=== PATIENT | male | born 1945 | race Caucasian/White ===

== ENCOUNTER 2017-01-14 18:56 | Inpatient (IN) | payer MEDICARE ==
[~2017-01-14] VITALS: Ht 182.9 cm; Wt 67.1 kg
[2017-01-14] MEDS ORDERED: LOPRESSOR (19:04)
[2017-01-14] MEDS ORDERED: ATOR10TA PO (19:04)
[2017-01-14] MEDS ORDERED: METHYLPREDNISOLONE SOD SUCC 125 MG/2 ML VIAL IV STA (19:10)
[2017-01-14] MEDS ORDERED: IPRATROPIUM/ALBUTEROL 0.5-3(2.5)MG/3ML NEB HHN ONE (19:15)
[2017-01-14] MEDS ORDERED: PIPERACILLIN/TAZ 3.375G PREMIX 50 ML IV ONE (19:15)
[2017-01-14 19:50] LABS: HEMATOCRIT. 37.3 % (42.0-52.0); HEMOGLOBIN. 11.1 g/dL (14.0-18.0); MEAN CORPUSCULAR HEMOGLOBIN 27.8 pg (28.0-32.0); MEAN CORPUSCULAR HGB CONC 29.7 g/dL (31.0-37.0); MEAN CORPUSCULAR VOLUME 93.5 fL (80.0-94.0); MEAN PLATELET VOLUME 9.9 fl (7.4-10.4); PLATELET 411 x1000/uL (130-400); RED BLOOD CELL COUNT 3.99 mill/uL (4.7-6.1); RED CELL DISTRIBUTION WIDTH 18.1 % (11.6-14.6)
[2017-01-14 19:52] LABS: DIFFERENTIAL COMMENT 1
[2017-01-14 20:01] LABS: ALBUMIN 1.9 g/dL (3.4-5.0); AMMONIA 65 uMol/L (<32); ANION GAP 20; CALCIUM 9.1 mg/dL (8.5-10.1); CARBON DIOXIDE 21 mEq/L (21-32); CHLORIDE 120 mEq/L (98-107); INDEX HEMOLYSI 1 (1-3); INDEX ICTERIC 1 (1-4); INDEX LIPEMIC 1 (1-3)
[2017-01-14 20:03] LABS: UREA NITROGEN BLOOD 91 mg/dL (7-21)
[2017-01-14 20:04] LABS: ALANINE AMINOTRANSFERASE 86 IU/L (13-61)
[2017-01-14 20:05] LABS: PLATELET ESTIMATE SLIGHTLY INCREASED
[2017-01-14 20:06] LABS: LACTIC ACID 10.5 mmol/L (0.4-2.0)
[2017-01-14 20:07] LABS: CREATINE KINASE 738 IU/L (39-308); eGFR 20 mL/min (>60)
[2017-01-14 20:09] LABS: NT PRO B-TYPE NATRIURETIC PEP 6989 pg/mL (5-125); TROPONIN I 0.09 ng/mL (0.00-0.04)
[2017-01-14 20:26] LABS: INR 1.3; PARTIAL THROMBOPLASTIN TIME 24.5 sec (24.0-34.0)
[2017-01-14 20:30] LABS: BG BASE EXCESS -9.6 mmol/L (-2.0-2.0); BG CARBOXYHEMOGLOBIN 0.3 % (0.5-1.5); BG DEOXYHEMOGLOBIN 3.2 % (0.0-5.0); BG FRACTION INSPIRED OXYGEN 40; BG METHEMOGLOBIN 0.3 % (0.0-1.5); BG OXYGEN SATURATION 96.8 % (92.0-98.5); BG OXYHEMOGLOBIN 96.2 % (94.0-97.0); BG PCO2 14.6 mmHg (35.0-45.0); BG PH 7.494 (7.350-7.450); BG PO2 88.9 mmHg (75.0-100.0); BG SAMPLE SITE LEFT FEMORAL; BG TOTAL HEMOGLOBIN 11.7 g/dL (12.0-18.0); BG VENT MODE MASK - SIMPLE
[2017-01-14] MEDS ORDERED: DEXT 10% WATER 1,000 ML IV ONE (20:33)
[2017-01-14] MEDS ORDERED: ACETAMINOPHEN 650MG SUPP PR ONE (20:45)
[2017-01-14] MEDS ORDERED: DEXTROSE 50% WATER 50ML SYRINGE IV ONE (20:45)
[2017-01-14] MEDS ORDERED: SODIUM CHLORIDE 0.9% 1000ML BAG (SEPSIS BOLUS) IV ONE (21:00)
[2017-01-14] MEDS ORDERED: DEXTROSE 10% WATER 1000ML IV ONE (21:00)
[2017-01-14 21:41] LABS: CLARITY URINE CLOUDY (CLEAR); COLOR URINE DARK YELLOW (YELLOW); GLUCOSE URINE NEGATIVE (NEGATIVE); KETONES URINE NEGATIVE (NEGATIVE); LEUKOCYTE ESTERASE URINE NEGATIVE (NEGATIVE); NITRITE URINE NEGATIVE (NEGATIVE); OCCULT BLOOD URINE NEGATIVE (NEGATIVE); PROTEIN URINE TRACE (NEGATIVE); SPECIFIC GRAVITY URINE 1.023 (1.005-1.030)
[2017-01-14 22:16] LABS: BACTERIA URINE 2+; SQUAMOUS EPITHELIAL CELL URINE FEW /lpf (RARE/1+)
[2017-01-14 22:17] LABS: RBC URINE NONE SEEN /hpf (0-2); WBC URINE 0-2 /hpf (0-2)
[2017-01-14] MEDS ORDERED: SODIUM CHLORIDE 0.9% 1,000 ML IV ONE (22:28)
[2017-01-15] VITALS (14 sets, daily range): BP systolic 81–126; BP diastolic 39–89
[2017-01-15] MEDS ORDERED: ACETAMINOPHEN 650MG SUPP PR PRN (00:45)
[2017-01-15] MEDS: DEXTROSE 5% WATER 1,000 ML IV SCH ×2 (01:20→14:45)
[2017-01-15] MEDS: PIPERACILLIN/TAZ 2.25G PREMIX 50 ML IV SCH ×4 (03:27→20:25)
[2017-01-15] MEDS ORDERED: PIPERACILLIN/TAZ 3.375G PREMIX 50 ML IV SCH (06:00)
[2017-01-15 06:35] LABS: HEMATOCRIT 28.4 % (42.0-52.0); HEMOGLOBIN 8.8 g/dL (14.0-18.0); MEAN CORPUSCULAR HEMOGLOBIN 27.3 pg (28.0-32.0); MEAN CORPUSCULAR HGB CONC 30.8 g/dL (31.0-37.0); MEAN CORPUSCULAR VOLUME 88.8 fL (80.0-94.0); PLATELET 217 x1000/uL (130-400); RED CELL DISTRIBUTION WIDTH 17.8 % (11.6-14.6); WHITE BLOOD COUNT 12.7 x1000/uL (4.5-11.0)
[2017-01-15 07:19] LABS: CALCIUM 7.3 mg/dL (8.5-10.1)
[2017-01-15] MEDS ORDERED: VANCOMYCIN 1,250 MG in DEXT 5% WATER 250 ML IV SCH (13:00)
[2017-01-15 13:47] LABS: INDEX HEMOLYSI 1 (1-3)
[2017-01-15 13:52] LABS: CREATINE KINASE 3545 IU/L (39-308)
[2017-01-16] VITALS (13 sets, daily range): BP systolic 82–108; BP diastolic 35–72
[2017-01-16] MEDS: PIPERACILLIN/TAZ 2.25G PREMIX 50 ML IV SCH ×3 (02:15→15:26)
[2017-01-16] MEDS: DEXTROSE 5% WATER 1,000 ML IV SCH ×4 (02:16→21:13)
[2017-01-16 06:26] LABS: HEMATOCRIT. 27.2 % (42.0-52.0); HEMOGLOBIN. 8.5 g/dL (14.0-18.0); MEAN CORPUSCULAR HEMOGLOBIN 26.9 pg (28.0-32.0); MEAN CORPUSCULAR HGB CONC 31.3 g/dL (31.0-37.0); MEAN CORPUSCULAR VOLUME 85.9 fL (80.0-94.0); MEAN PLATELET VOLUME 10.1 fl (7.4-10.4); PLATELET 188 x1000/uL (130-400); RED BLOOD CELL COUNT 3.16 mill/uL (4.7-6.1); RED CELL DISTRIBUTION WIDTH 17.4 % (11.6-14.6); WHITE BLOOD COUNT 19.1 x1000/uL (4.5-11.0)
[2017-01-16 06:38] LABS: DIFFERENTIAL COMMENT 1
[2017-01-16 07:33] LABS: ALANINE AMINOTRANSFERASE 233 IU/L (13-61); ALBUMIN 1.3 g/dL (3.4-5.0); ANION GAP 16; CALCIUM 7.7 mg/dL (8.5-10.1); CARBON DIOXIDE 19 mEq/L (21-32); CHLORIDE 121 mEq/L (98-107); INDEX HEMOLYSI 1 (1-3); INDEX ICTERIC 1 (1-4); INDEX LIPEMIC 1 (1-3); MAGNESIUM 3.2 mg/dL (1.8-2.4); eGFR 23 mL/min (>60)
[2017-01-16 07:49] LABS: UREA NITROGEN BLOOD 102 mg/dL (7-21)
[2017-01-16 07:53] LABS: ANISOCYTOSIS 1+; PLATELET ESTIMATE NORMAL
[2017-01-16] MEDS ORDERED: VANCOMYCIN 1 G PREMIX 200 ML IV NR (12:00)
[2017-01-16] MEDS: PANTOPRAZOLE SODIUM 40 MG/VIAL IV SCH (13:06)
[2017-01-16 18:02] LABS: ANTI-NUCLEAR ANTIBODIES DIRECT Positive (Negative)
[2017-01-16] MEDS: METRONIDAZOLE 500 MG PREMIX 100 ML IV SCH (20:53)
[2017-01-16] MEDS: CEFTAZIDIME PENTAHYDRATE 1 G in DEXTROSE 5% WATER 50 ML IV SCH (21:57)
[2017-01-17] VITALS (13 sets, daily range): BP systolic 86–104; BP diastolic 45–68
[2017-01-17] MEDS: DEXTROSE 5% WATER 1,000 ML IV SCH ×3 (05:02→20:15)
[2017-01-17 05:39] LABS: COMPLEMENT C3 119 mg/dL (82-167); COMPLEMENT C4 17 mg/dL (14-44)
[2017-01-17] MEDS ORDERED: VANCOMYCIN 1 G PREMIX 200 ML IV NR (06:00)
[2017-01-17 06:38] LABS: HEMATOCRIT. 24.3 % (42.0-52.0); HEMOGLOBIN. 7.7 g/dL (14.0-18.0); MEAN CORPUSCULAR HEMOGLOBIN 27.1 pg (28.0-32.0); MEAN CORPUSCULAR HGB CONC 31.9 g/dL (31.0-37.0); MEAN CORPUSCULAR VOLUME 85.1 fL (80.0-94.0); MEAN PLATELET VOLUME 10.5 fl (7.4-10.4); PLATELET 155 x1000/uL (130-400); RED BLOOD CELL COUNT 2.85 mill/uL (4.7-6.1); RED CELL DISTRIBUTION WIDTH 16.7 % (11.6-14.6); WHITE BLOOD COUNT 17.7 x1000/uL (4.5-11.0)
[2017-01-17 07:02] LABS: DIFFERENTIAL COMMENT 1
[2017-01-17 07:09] LABS: HEPATITIS B SURFACE ANTIGEN NEGATIVE
[2017-01-17 07:37] LABS: HEPATITIS B CORE AB IGM NEGATIVE; HEPATITIS C VIR.AB 0.26 INDEXVAL (0.00-0.80)
[2017-01-17 07:39] LABS: HEPATITIS A AB IGM NEGATIVE (NEGATIVE)
[2017-01-17 07:58] LABS: ANION GAP 14; CALCIUM 7.8 mg/dL (8.5-10.1); CARBON DIOXIDE 19 mEq/L (21-32); CHLORIDE 118 mEq/L (98-107); INDEX HEMOLYSI 1 (1-3); INDEX ICTERIC 1 (1-4); INDEX LIPEMIC 1 (1-3); MAGNESIUM 3.2 mg/dL (1.8-2.4); URIC ACID 8.5 mg/dL (2.6-7.2)
[2017-01-17 08:10] LABS: ALANINE AMINOTRANSFERASE 244 IU/L (13-61); ALBUMIN 1.3 g/dL (3.4-5.0); CREATINE KINASE 668 IU/L (39-308); eGFR 31 mL/min (>60)
[2017-01-17 08:15] LABS: ANISOCYTOSIS 1+; PLATELET ESTIMATE NORMAL
[2017-01-17] MEDS: PANTOPRAZOLE SODIUM 40 MG/VIAL IV SCH ×2 (08:24→20:15)
[2017-01-17] MEDS: METRONIDAZOLE 500 MG PREMIX 100 ML IV SCH ×2 (08:24→22:01)
[2017-01-17 08:25] LABS: UREA NITROGEN BLOOD 93 mg/dL (7-21)
[2017-01-17] MEDS ORDERED: POTASSIUM CHLORIDE 20 MEQ/PACKET PO NR (09:33)
[2017-01-17] MEDS: CEFTAZIDIME PENTAHYDRATE 1 G in DEXTROSE 5% WATER 50 ML IV SCH ×2 (10:51→22:13)
[2017-01-17] MEDS ORDERED: KCL 20MEQ/100ML PREMIX 100 ML IV NR (12:00)
[2017-01-17] MEDS ORDERED: LACTULOSE 300 ML in WATER FOR INJECTION,STERILE 700 ML PR NR (18:00)
[2017-01-17 19:14] LABS: AMMONIA 20 uMol/L (<32)
[2017-01-17] MEDS ORDERED: VANCOMYCIN 1 G PREMIX 200 ML IV SCH (21:00)
[2017-01-18] VITALS (12 sets, daily range): BP systolic 74–103; BP diastolic 38–87
[2017-01-18] MEDS: DEXTROSE 5% WATER 1,000 ML IV SCH ×2 (06:27→13:25)
[2017-01-18 07:40] LABS: HEMATOCRIT. 22.2 % (42.0-52.0); HEMOGLOBIN. 7.1 g/dL (14.0-18.0); MEAN CORPUSCULAR HEMOGLOBIN 27.2 pg (28.0-32.0); MEAN PLATELET VOLUME 10.2 fl (7.4-10.4); PLATELET 128 x1000/uL (130-400); RED BLOOD CELL COUNT 2.61 mill/uL (4.7-6.1); RED CELL DISTRIBUTION WIDTH 16.6 % (11.6-14.6); WHITE BLOOD COUNT 12.3 x1000/uL (4.5-11.0)
[2017-01-18 08:09] LABS: DIFFERENTIAL COMMENT 1
[2017-01-18 08:26] LABS: CALCIUM 7.6 mg/dL (8.5-10.1); MAGNESIUM 3.1 mg/dL (1.8-2.4)
[2017-01-18 08:30] LABS: ALBUMIN 1.2 g/dL (3.4-5.0); BILIRUBIN DIRECT 0.3 mg/dL (0.0-0.2); PHOSPHORUS 2.5 mg/dL (2.5-4.9)
[2017-01-18 08:31] LABS: AMMONIA 28 uMol/L (<32)
[2017-01-18] MEDS ORDERED: FAMOTIDINE 20MG/2ML VIAL IV SCH (09:00)
[2017-01-18] MEDS: METRONIDAZOLE 500 MG PREMIX 100 ML IV SCH ×2 (09:02→20:38)
[2017-01-18] MEDS: PANTOPRAZOLE SODIUM 40 MG/VIAL IV SCH ×2 (09:02→20:44)
[2017-01-18] MEDS: CEFTAZIDIME PENTAHYDRATE 1 G in DEXTROSE 5% WATER 50 ML IV SCH ×2 (09:50→20:38)
[2017-01-18 12:34] LABS: PLATELET ESTIMATE SLIGHTLY DECREASED
[2017-01-18 12:35] LABS: ROULEAUX 1+
[2017-01-18] MEDS ORDERED: POTASSIUM CHLORIDE 20 MEQ/PACKET PO SCH (14:00)
[2017-01-18] MEDS ORDERED: KCL 20MEQ/100ML PREMIX 100 ML IV NR (15:00)
[2017-01-18] MEDS: DEXT 5% WATER + KCL 20MEQ/L 1,000 ML IV SCH (16:04)
[2017-01-18] MEDS: VANCOMYCIN 1250MG in DEXTROSE 5% WATER 250ML IV SCH (21:57)
[2017-01-19] VITALS (12 sets, daily range): BP systolic 93–121; BP diastolic 51–66
[2017-01-19 06:13] LABS: INR 1.2; PARTIAL THROMBOPLASTIN TIME 30.1 sec (24.0-34.0)
[2017-01-19 06:15] LABS: INDEX HEMOLYSI 1 (1-3)
[2017-01-19 06:18] LABS: AMMONIA < 10 uMol/L (<32)
[2017-01-19] MEDS: DEXT 5% WATER + KCL 20MEQ/L 1,000 ML IV SCH ×2 (06:19→17:28)
[2017-01-19 06:24] LABS: HEMATOCRIT. 25.1 % (42.0-52.0); HEMOGLOBIN. 7.9 g/dL (14.0-18.0); MEAN CORPUSCULAR HGB CONC 31.5 g/dL (31.0-37.0); MEAN CORPUSCULAR VOLUME 85.7 fL (80.0-94.0); MEAN PLATELET VOLUME 10.1 fl (7.4-10.4); PLATELET 151 x1000/uL (130-400); RED BLOOD CELL COUNT 2.93 mill/uL (4.7-6.1); RED CELL DISTRIBUTION WIDTH 16.5 % (11.6-14.6); WHITE BLOOD COUNT 11.8 x1000/uL (4.5-11.0)
[2017-01-19 06:34] LABS: DIFFERENTIAL COMMENT 1
[2017-01-19 07:18] LABS: ALANINE AMINOTRANSFERASE 231 IU/L (13-61); ALBUMIN 1.4 g/dL (3.4-5.0); ANION GAP 12; BILIRUBIN DIRECT 0.3 mg/dL (0.0-0.2); CALCIUM 7.8 mg/dL (8.5-10.1); CARBON DIOXIDE 21 mEq/L (21-32); CHLORIDE 114 mEq/L (98-107); INDEX HEMOLYSI 1 (1-3); INDEX ICTERIC 1 (1-4); INDEX LIPEMIC 1 (1-3); UREA NITROGEN BLOOD 47 mg/dL (7-21); eGFR > 60 mL/min (>60)
[2017-01-19] MEDS: METRONIDAZOLE 500 MG PREMIX 100 ML IV SCH ×2 (08:41→20:33)
[2017-01-19] MEDS: PANTOPRAZOLE SODIUM 40 MG/VIAL IV SCH (08:41)
[2017-01-19] MEDS: CEFTAZIDIME PENTAHYDRATE 1 G in DEXTROSE 5% WATER 50 ML IV SCH ×2 (09:44→21:32)
[2017-01-19 10:23] LABS: ANISOCYTOSIS 2+; PLATELET ESTIMATE NORMAL
[2017-01-19] MEDS ORDERED: SIMETHICONE 40 MG/0.6 ML 30ML ONE ×2 (10:59→11:00)
[2017-01-19] MEDS ORDERED: SODIUM CHLORIDE 0.9% 10ML VIAL ONE ×2 (10:59→11:00)
[2017-01-19] MEDS ORDERED: FENTANYL CITRATE/PF 50MCG/ML 2ML VIAL ONE (15:49)
[2017-01-19] MEDS ORDERED: MIDAZOLAM HCL 5 MG/5 ML VIAL ONE (15:49)
[2017-01-19 17:20] LABS: INDEX HEMOLYSI 1 (1-3); INDEX ICTERIC 1 (1-4); INDEX LIPEMIC 1 (1-3); IRON 33 ug/dL (50-175); TOTAL IRON BINDING CAPACITY 236 ug/dL (250-450)
[2017-01-19] MEDS: VANCOMYCIN 1250MG in DEXTROSE 5% WATER 250ML IV SCH (22:06)
[2017-01-20] VITALS (16 sets, daily range): BP systolic 88–120; BP diastolic 52–71
[2017-01-20 05:14] LABS: HEMATOCRIT. 24.7 % (42.0-52.0); HEMOGLOBIN. 7.9 g/dL (14.0-18.0); MEAN CORPUSCULAR HEMOGLOBIN 27.7 pg (28.0-32.0); MEAN CORPUSCULAR HGB CONC 31.8 g/dL (31.0-37.0); MEAN CORPUSCULAR VOLUME 87.2 fL (80.0-94.0); MEAN PLATELET VOLUME 10.2 fl (7.4-10.4); PLATELET 165 x1000/uL (130-400); RED BLOOD CELL COUNT 2.84 mill/uL (4.7-6.1); RED CELL DISTRIBUTION WIDTH 16.6 % (11.6-14.6); WHITE BLOOD COUNT 12.2 x1000/uL (4.5-11.0)
[2017-01-20 05:15] LABS: DIFFERENTIAL COMMENT 1
[2017-01-20 06:29] LABS: INDEX HEMOLYSI 1 (1-3)
[2017-01-20 06:31] LABS: ALANINE AMINOTRANSFERASE 149 IU/L (13-61); ALBUMIN 1.4 g/dL (3.4-5.0); ANION GAP 11; BILIRUBIN DIRECT 0.2 mg/dL (0.0-0.2); CALCIUM 7.3 mg/dL (8.5-10.1); CARBON DIOXIDE 21 mEq/L (21-32); CHLORIDE 116 mEq/L (98-107); INDEX HEMOLYSI 1 (1-3); INDEX ICTERIC 1 (1-4); INDEX LIPEMIC 1 (1-3); UREA NITROGEN BLOOD 35 mg/dL (7-21); eGFR > 60 mL/min (>60)
[2017-01-20 06:39] LABS: AMMONIA 30 uMol/L (<32)
[2017-01-20 07:16] LABS: PLATELET ESTIMATE NORMAL
[2017-01-20] MEDS: METRONIDAZOLE 500 MG PREMIX 100 ML IV SCH ×2 (09:29→19:51)
[2017-01-20] MEDS: CEFTAZIDIME PENTAHYDRATE 1 G in DEXTROSE 5% WATER 50 ML IV SCH ×2 (09:29→21:14)
[2017-01-20] MEDS: VANCOMYCIN 1250MG in DEXTROSE 5% WATER 250ML IV SCH (21:47)
[2017-01-21] VITALS (12 sets, daily range): BP systolic 91–130; BP diastolic 49–78
[2017-01-21 06:33] LABS: HEMATOCRIT. 34.5 % (42.0-52.0); HEMOGLOBIN. 11.1 g/dL (14.0-18.0); MEAN CORPUSCULAR HEMOGLOBIN 28.1 pg (28.0-32.0); MEAN CORPUSCULAR HGB CONC 32.3 g/dL (31.0-37.0); MEAN CORPUSCULAR VOLUME 87.1 fL (80.0-94.0); MEAN PLATELET VOLUME 10.1 fl (7.4-10.4); PLATELET 182 x1000/uL (130-400); RED BLOOD CELL COUNT 3.96 mill/uL (4.7-6.1); RED CELL DISTRIBUTION WIDTH 16.7 % (11.6-14.6); WHITE BLOOD COUNT 13.3 x1000/uL (4.5-11.0)
[2017-01-21 06:40] LABS: DIFFERENTIAL COMMENT 1
[2017-01-21 07:21] LABS: ALBUMIN 1.5 g/dL (3.4-5.0); ANION GAP 12; BILIRUBIN DIRECT 0.1 mg/dL (0.0-0.2); CALCIUM 7.5 mg/dL (8.5-10.1); CARBON DIOXIDE 21 mEq/L (21-32); CHLORIDE 115 mEq/L (98-107); INDEX HEMOLYSI 1 (1-3); INDEX ICTERIC 1 (1-4); INDEX LIPEMIC 1 (1-3); UREA NITROGEN BLOOD 28 mg/dL (7-21)
[2017-01-21 07:27] LABS: ALANINE AMINOTRANSFERASE 103 IU/L (13-61); eGFR > 60 mL/min (>60)
[2017-01-21 07:49] LABS: ATYPICAL LYMPHOCYTES 1; PLATELET ESTIMATE NORMAL
[2017-01-21] MEDS: CEFTAZIDIME PENTAHYDRATE 1 G in DEXTROSE 5% WATER 50 ML IV SCH ×2 (08:17→21:04)
[2017-01-21] MEDS: METRONIDAZOLE 500 MG PREMIX 100 ML IV SCH ×2 (08:17→19:40)
[2017-01-21] MEDS ORDERED: VANCOMYCIN 1 G PREMIX 200 ML IV SCH (14:00)
[2017-01-21] MEDS: ACETAMINOPHEN 325MG TABLET PO PRN (23:41)
[2017-01-22] VITALS (9 sets, daily range): BP systolic 88–118; BP diastolic 56–68
[2017-01-22] MEDS: VANCOMYCIN 1 G PREMIX 200 ML IV SCH (05:02)
[2017-01-22 06:48] LABS: HEMOGLOBIN. 11.4 g/dL (14.0-18.0); MEAN CORPUSCULAR HEMOGLOBIN 27.9 pg (28.0-32.0); MEAN CORPUSCULAR HGB CONC 32.5 g/dL (31.0-37.0); MEAN PLATELET VOLUME 9.8 fl (7.4-10.4); PLATELET 239 x1000/uL (130-400); RED BLOOD CELL COUNT 4.07 mill/uL (4.7-6.1); WHITE BLOOD COUNT 16.2 x1000/uL (4.5-11.0)
[2017-01-22 07:13] LABS: DIFFERENTIAL COMMENT 1
[2017-01-22 07:39] LABS: CHLORIDE 115 mEq/L (98-107); INDEX HEMOLYSI 1 (1-3); INDEX ICTERIC 1 (1-4); INDEX LIPEMIC 1 (1-3)
[2017-01-22 08:13] LABS: ANION GAP 12; CALCIUM 7.3 mg/dL (8.5-10.1); CARBON DIOXIDE 21 mEq/L (21-32); UREA NITROGEN BLOOD 26 mg/dL (7-21); eGFR > 60 mL/min (>60)
[2017-01-22] MEDS: CEFTAZIDIME PENTAHYDRATE 1 G in DEXTROSE 5% WATER 50 ML IV SCH ×2 (08:43→20:07)
[2017-01-22] MEDS: METRONIDAZOLE 500 MG PREMIX 100 ML IV SCH ×2 (08:44→20:07)
[2017-01-22 19:52] LABS: PLATELET ESTIMATE NORMAL
[2017-01-23] VITALS (10 sets, daily range): BP systolic 85–116; BP diastolic 54–77
[2017-01-23] MEDS: VANCOMYCIN 1 G PREMIX 200 ML IV SCH ×2 (00:26→17:34)
[2017-01-23] MEDS: ACETAMINOPHEN 325MG TABLET PO PRN (04:27)
[2017-01-23 06:50] LABS: HEMATOCRIT. 30.6 % (42.0-52.0); HEMOGLOBIN. 9.8 g/dL (14.0-18.0); MEAN CORPUSCULAR HEMOGLOBIN 27.5 pg (28.0-32.0); MEAN CORPUSCULAR HGB CONC 31.9 g/dL (31.0-37.0); MEAN CORPUSCULAR VOLUME 86.1 fL (80.0-94.0); MEAN PLATELET VOLUME 9.6 fl (7.4-10.4); PLATELET 209 x1000/uL (130-400); RED BLOOD CELL COUNT 3.55 mill/uL (4.7-6.1); RED CELL DISTRIBUTION WIDTH 17.6 % (11.6-14.6); WHITE BLOOD COUNT 15.9 x1000/uL (4.5-11.0)
[2017-01-23 07:26] LABS: CHLORIDE 115 mEq/L (98-107); INDEX HEMOLYSI 1 (1-3); INDEX ICTERIC 1 (1-4); INDEX LIPEMIC 1 (1-3)
[2017-01-23 07:31] LABS: ANION GAP 12; CALCIUM 7.5 mg/dL (8.5-10.1); CARBON DIOXIDE 22 mEq/L (21-32); UREA NITROGEN BLOOD 28 mg/dL (7-21); eGFR > 60 mL/min (>60)
[2017-01-23 07:56] LABS: DIFFERENTIAL COMMENT 1
[2017-01-23] MEDS: METRONIDAZOLE 500 MG PREMIX 100 ML IV SCH ×2 (08:12→21:30)
[2017-01-23] MEDS: CEFTAZIDIME PENTAHYDRATE 1 G in DEXTROSE 5% WATER 50 ML IV SCH ×2 (08:12→21:31)
[2017-01-23] MEDS: MORPHINE SULFATE 2 MG/ML CPJ (NOT FOR IM USE) IV PRN ×2 (11:10→17:40)
[2017-01-23] MEDS: DOCUSATE SODIUM 100MG CAPSULE PO SCH ×2 (11:48→17:34)
[2017-01-23 12:26] LABS: PLATELET ESTIMATE NORMAL
[2017-01-23 12:27] LABS: ANISOCYTOSIS 1+
[2017-01-23] MEDS ORDERED: LACTULOSE 20G/30ML UDC PO PRN (21:00)
[2017-01-24] VITALS: BP 112/67
[2017-01-24 04:00] VITALS: BP 98/51
[2017-01-24 06:30] LABS: ALBUMIN 1.1 g/dL (3.4-5.0); ANION GAP 13; CALCIUM 7.5 mg/dL (8.5-10.1); CARBON DIOXIDE 23 mEq/L (21-32); CHLORIDE 114 mEq/L (98-107); INDEX HEMOLYSI 1 (1-3); INDEX ICTERIC 1 (1-4); INDEX LIPEMIC 1 (1-3); UREA NITROGEN BLOOD 27 mg/dL (7-21)
[2017-01-24 06:35] LABS: ALANINE AMINOTRANSFERASE 40 IU/L (13-61); eGFR > 60 mL/min (>60)
[2017-01-24] MEDS: METRONIDAZOLE 500 MG PREMIX 100 ML IV SCH (07:56)
[2017-01-24 08:00] VITALS: BP 113/61
[2017-01-24] MEDS: DOCUSATE SODIUM 100MG CAPSULE PO SCH ×2 (08:32→16:53)
[2017-01-24] MEDS: CEFTAZIDIME PENTAHYDRATE 1 G in DEXTROSE 5% WATER 50 ML IV SCH (08:32)
[2017-01-24 12:00] VITALS: BP 102/59
[2017-01-24] MEDS: VANCOMYCIN 1 G PREMIX 200 ML IV SCH (12:29)
[2017-01-24 16:00] VITALS: BP 117/70
[2017-01-24 20:00] VITALS: BP 92/50
[2017-01-25] VITALS: BP 97/63
[2017-01-25 04:00] VITALS: BP 100/67
[2017-01-25] MEDS: VANCOMYCIN 1 G PREMIX 200 ML IV SCH (05:58)
[2017-01-25 06:24] LABS: HEMATOCRIT. 29.4 % (42.0-52.0); HEMOGLOBIN. 9.7 g/dL (14.0-18.0); MEAN CORPUSCULAR HEMOGLOBIN 28.3 pg (28.0-32.0); MEAN CORPUSCULAR HGB CONC 32.8 g/dL (31.0-37.0); MEAN CORPUSCULAR VOLUME 86.2 fL (80.0-94.0); MEAN PLATELET VOLUME 9.7 fl (7.4-10.4); PLATELET 227 x1000/uL (130-400); RED BLOOD CELL COUNT 3.42 mill/uL (4.7-6.1); RED CELL DISTRIBUTION WIDTH 17.1 % (11.6-14.6); WHITE BLOOD COUNT 15.3 x1000/uL (4.5-11.0)
[2017-01-25 06:39] LABS: DIFFERENTIAL COMMENT 1
[2017-01-25 06:45] LABS: ANION GAP 11; CALCIUM 7.6 mg/dL (8.5-10.1); CARBON DIOXIDE 25 mEq/L (21-32); CHLORIDE 113 mEq/L (98-107); INDEX HEMOLYSI 1 (1-3); INDEX ICTERIC 1 (1-4); INDEX LIPEMIC 1 (1-3); MAGNESIUM 1.9 mg/dL (1.8-2.4); PHOSPHORUS 2.6 mg/dL (2.5-4.9); UREA NITROGEN BLOOD 29 mg/dL (7-21); eGFR > 60 mL/min (>60)
[2017-01-25 08:00] VITALS: BP 105/64
[2017-01-25] MEDS: DOCUSATE SODIUM 100MG CAPSULE PO SCH (08:30)
[2017-01-25 12:00] VITALS: BP 104/64
[2017-01-25 13:19] LABS: ANISOCYTOSIS 1+; PLATELET ESTIMATE NORMAL
[2017-01-25 16:00] VITALS: BP 98/64
[2017-01-25] MEDS: DOCUSATE SODIUM SUGAR FREE 100MG/10ML UDC GT SCH (16:30)
[2017-01-25 20:00] VITALS: BP 105/57
[2017-01-26] VITALS: BP 107/61
[2017-01-26] MEDS: VANCOMYCIN 1 G PREMIX 200 ML IV SCH (00:48)
[2017-01-26 04:00] VITALS: BP 93/62
[2017-01-26 08:00] VITALS: BP 100/66
[2017-01-26] MEDS: DOCUSATE SODIUM SUGAR FREE 100MG/10ML UDC GT SCH (09:52)
[2017-01-26 12:00] VITALS: BP 90/51
[2017-01-26 15:14] VITALS: BP 90/51
== END 2017-01-26 16:00 | DRG 559 ==
LOC: ER 18:57 → 5EST 20:45 → 8WST 01-23 23:49
PROVIDERS: ADMIT Hospitalist; ATTEND Hospitalist
PROC: 0DH63UZ Insertion of Feeding Device into Stomach, Percutaneous Approach (ICD-10-PCS; principal; 2017-01-19 13:00)
PROC: 30233N1 Transfusion of Nonautologous Red Blood Cells into Peripheral Vein, Percutaneous Approach (ICD-10-PCS; 2017-01-20)
PROC: 5A1935Z Respiratory Ventilation, Less than 24 Consecutive Hours (ICD-10-PCS; 2017-01-25)
DX: T84.020A Dislocation of internal right hip prosthesis, initial encounter (principal); A41.02 Sepsis due to Methicillin resistant Staphylococcus aureus; E43 Unspecified severe protein-calorie malnutrition; N17.0 Acute kidney failure with tubular necrosis; G93.41 Metabolic encephalopathy; B17.9 Acute viral hepatitis, unspecified; E87.0 Hyperosmolality and hypernatremia; G91.9 Hydrocephalus, unspecified; J44.1 Chronic obstructive pulmonary disease with (acute) exacerbation; M62.82 Rhabdomyolysis; N39.0 Urinary tract infection, site not specified; K92.2 Gastrointestinal hemorrhage, unspecified; I82.431 Acute embolism and thrombosis of right popliteal vein; T81.31XA Disruption of external operation (surgical) wound, not elsewhere classified, initial encounter; D64.9 Anemia, unspecified; E16.2 Hypoglycemia, unspecified; E78.00 Pure hypercholesterolemia, unspecified; E86.0 Dehydration; E87.5 Hyperkalemia; F03.90 Unspecified dementia, unspecified severity, without behavioral disturbance, psychotic disturbance, mood disturbance, and anxiety; I25.10 Atherosclerotic heart disease of native coronary artery without angina pectoris; I45.10 Unspecified right bundle-branch block; N18.9 Chronic kidney disease, unspecified; I13.10 Hypertensive heart and chronic kidney disease without heart failure, with stage 1 through stage 4 chronic kidney disease, or unspecified chronic kidney disease; K29.70 Gastritis, unspecified, without bleeding; K80.20 Calculus of gallbladder without cholecystitis without obstruction; K74.60 Unspecified cirrhosis of liver; L89.899 Pressure ulcer of other site, unspecified stage; N28.89 Other specified disorders of kidney and ureter; R09.02 Hypoxemia; R13.10 Dysphagia, unspecified; R00.0 Tachycardia, unspecified; R74.0 Nonspecific elevation of levels of transaminase and lactic acid dehydrogenase [LDH]; R79.89 Other specified abnormal findings of blood chemistry; R70.0 Elevated erythrocyte sedimentation rate; Y79.2 Prosthetic and other implants, materials and accessory orthopedic devices associated with adverse incidents; Y92.89 Other specified places as the place of occurrence of the external cause; Y83.8 Other surgical procedures as the cause of abnormal reaction of the patient, or of later complication, without mention of misadventure at the time of the procedure; I69.320 Aphasia following cerebral infarction; Z98.890 Other specified postprocedural states; Z68.20 Body mass index [BMI] 20.0-20.9, adult
CPT/HCPCS: 36415; 36600; 70450; 71010; 72170; 73552; 76705; 76770; 80048; 80053; 80076; 80202; 81001; 82140; 82270; 82375; 82550; 82728; 82805; 82962; 83540; 83550; 83605; 83735; 83880; 84100; 84443; 84484; 84550; 85025; 85027; 85610; 85651; 85730; 86038; 86140; 86160; 86705; 86709; 86803; 86850; 86900; 86920; 87040; 87077; 87340; 92610; 93005; 93306; 93970; 94640; A4216; A6261; C9113; J0713; J2250; J2270; J2543; J2930; J3010; J3370; J3480; J3490; J7030; J7040; J7050; J7060; J7070; J7620; P9016

== ENCOUNTER 2017-03-12 10:30 | Inpatient (IN) | payer MEDICARE, MEDICAID ==
[~2017-03-12] VITALS: Ht 182.9 cm; Wt 65.3 kg
[~2017-03-12 10:30] MED LIST: ATOR10TA PO; LOPRESSOR
[2017-03-12 14:15] VITALS: BP 123/90
[2017-03-12] MEDS ORDERED: DEXT 5% IV SCH (15:15)
[2017-03-12] MEDS ORDERED: VANCOMYCIN IV SCH (15:15)
[2017-03-12] MEDS ORDERED: WATER IV SCH (15:15)
[2017-03-12] MEDS ORDERED: ONDANSETRON HCL 4MG/2ML VIAL IV PRN (15:15)
[2017-03-12] MEDS ORDERED: HYDROMORPHONE HCL/PF 2MG/ML CPJ IV PRN (15:15)
[2017-03-12 15:56] VITALS: BP 123/90
[2017-03-12 16:00] VITALS: BP 116/85
[2017-03-12 20:00] VITALS: BP 116/69
[2017-03-13] VITALS: BP 112/71
[2017-03-13 04:00] VITALS: BP 93/59
[2017-03-13 07:20] LABS: ANION GAP 15; CALCIUM 7.8 mg/dL (8.5-10.1); CARBON DIOXIDE 23 mEq/L (21-32); CHLORIDE 110 mEq/L (98-107); INDEX HEMOLYSI 1 (1-3); INDEX ICTERIC 1 (1-4); INDEX LIPEMIC 1 (1-3); UREA NITROGEN BLOOD 28 mg/dL (7-21); eGFR > 60 mL/min (>60)
[2017-03-13 07:34] LABS: HEMATOCRIT. 28.6 % (42.0-52.0); HEMOGLOBIN. 8.7 g/dL (14.0-18.0); MEAN CORPUSCULAR HEMOGLOBIN 26.2 pg (28.0-32.0); MEAN CORPUSCULAR HGB CONC 30.6 g/dL (31.0-37.0); MEAN CORPUSCULAR VOLUME 85.5 fL (80.0-94.0); MEAN PLATELET VOLUME 9.3 fl (7.4-10.4); PLATELET 430 x1000/uL (130-400); RED BLOOD CELL COUNT 3.34 mill/uL (4.7-6.1); RED CELL DISTRIBUTION WIDTH 17.3 % (11.6-14.6); WHITE BLOOD COUNT 11.5 x1000/uL (4.5-11.0)
[2017-03-13 08:00] VITALS: BP 94/51
[2017-03-13 08:37] LABS: DIFFERENTIAL COMMENT 1
[2017-03-13] MEDS: PANTOPRAZOLE SODIUM 40 MG/VIAL IV SCH (09:30)
[2017-03-13 12:00] VITALS: BP 108/62
[2017-03-13] MEDS ORDERED: VANCOMYCIN 750 MG PREMIX 150 ML IV SCH (14:00)
[2017-03-13 14:06] LABS: ANISOCYTOSIS 1+; PLATELET ESTIMATE INCREASED
[2017-03-13 16:00] VITALS: BP 96/63
[2017-03-13 16:08] LABS: BG BASE EXCESS 0.8 mmol/L (-2.0-2.0); BG CARBOXYHEMOGLOBIN 0.3 % (0.5-1.5); BG DEOXYHEMOGLOBIN 4.3 % (0.0-5.0); BG FRACTION INSPIRED OXYGEN 2.5; BG METHEMOGLOBIN 0.1 % (0.0-1.5); BG OXYGEN SATURATION 95.7 % (92.0-98.5); BG OXYHEMOGLOBIN 95.3 % (94.0-97.0); BG PCO2 28.7 mmHg (35.0-45.0); BG PH 7.522 (7.350-7.450); BG PO2 75.9 mmHg (75.0-100.0); BG SAMPLE SITE RIGHT BRACHIAL; BG TOTAL HEMOGLOBIN 10.5 g/dL (12.0-18.0); BG VENT MODE NASAL CANNULA
[2017-03-13 17:10] LABS: LACTIC ACID 2.9 mmol/L (0.4-2.0)
[2017-03-13 20:00] VITALS: BP 103/66
[2017-03-13] MEDS: VANCOMYCIN 500 MG PREMIX 100 ML IV SCH (23:18)
[2017-03-13 23:50] LABS: CLARITY URINE CLEAR (CLEAR); COLOR URINE DARK YELLOW (YELLOW); GLUCOSE URINE NEGATIVE (NEGATIVE); KETONES URINE NEGATIVE (NEGATIVE); LEUKOCYTE ESTERASE URINE TRACE (NEGATIVE); NITRITE URINE NEGATIVE (NEGATIVE); OCCULT BLOOD URINE NEGATIVE (NEGATIVE); PH URINE 6.5 (4.5-8.0); PROTEIN URINE TRACE (NEGATIVE); SPECIFIC GRAVITY URINE 1.022 (1.005-1.030)
[2017-03-14] VITALS (42 sets, daily range): BP systolic 79–139; BP diastolic 37–113
[2017-03-14 00:14] LABS: *AMPHETAMINES SCREEN URINE NEGATIVE (NEGATIVE); *BARBITURATES SCREEN URINE NEGATIVE (NEGATIVE); *BENZODIAZEPINES SCREEN URINE NEGATIVE (NEGATIVE); *COCAINE SCREEN URINE NEGATIVE (NEGATIVE); CANNABINOID URINE SCREEN NEGATIVE (NEGATIVE); ECSTASY MDMA SCREEN URINE NEGATIVE (NEGATIVE); METHADONE URINE SCREEN NEGATIVE (NEGATIVE); OPIATES URINE SCREEN PRESUMTIVE POSITIVE (NEGATIVE); PHENCYCLIDINE URINE SCREEN NEGATIVE (NEGATIVE)
[2017-03-14 00:54] LABS: BACTERIA URINE NONE SEEN; RBC URINE 0-2 /hpf (0-2); SQUAMOUS EPITHELIAL CELL URINE RARE /lpf (RARE/1+); WBC URINE 0-2 /hpf (0-2)
[2017-03-14] MEDS: VANCOMYCIN 500 MG PREMIX 100 ML IV SCH ×3 (06:21→21:28)
[2017-03-14 08:56] LABS: HEMATOCRIT. 33.2 % (42.0-52.0); HEMOGLOBIN. 10.1 g/dL (14.0-18.0); MEAN CORPUSCULAR HEMOGLOBIN 25.7 pg (28.0-32.0); MEAN CORPUSCULAR HGB CONC 30.4 g/dL (31.0-37.0); MEAN CORPUSCULAR VOLUME 84.8 fL (80.0-94.0); PLATELET 493 x1000/uL (130-400); RED BLOOD CELL COUNT 3.91 mill/uL (4.7-6.1); WHITE BLOOD COUNT 15.5 x1000/uL (4.5-11.0)
[2017-03-14] MEDS ORDERED: SODIUM HYPOCHLORITE 0.125% 473ML SOLUTION TOP SCH (09:00)
[2017-03-14 09:03] LABS: ANION GAP 14; CALCIUM 8.8 mg/dL (8.5-10.1); CARBON DIOXIDE 24 mEq/L (21-32); CHLORIDE 113 mEq/L (98-107); INDEX HEMOLYSI 1 (1-3); INDEX ICTERIC 1 (1-4); INDEX LIPEMIC 1 (1-3); UREA NITROGEN BLOOD 29 mg/dL (7-21); eGFR > 60 mL/min (>60)
[2017-03-14 09:07] LABS: DIFFERENTIAL COMMENT 1
[2017-03-14] MEDS: DEXT 5%/0.45% NACL 1000ML 1,000 ML IV SCH ×2 (10:20→12:30)
[2017-03-14] MEDS: PANTOPRAZOLE SODIUM 40 MG/VIAL IV SCH (12:29)
[2017-03-14] MEDS: SODIUM HYPOCHLORITE 0.125% 473ML SOLUTION TOP SCH (12:29)
[2017-03-14 13:41] LABS: BG BASE EXCESS -2.8 mmol/L (-2.0-2.0); BG CARBOXYHEMOGLOBIN 0.3 % (0.5-1.5); BG DEOXYHEMOGLOBIN 0.5 % (0.0-5.0); BG FRACTION INSPIRED OXYGEN 100; BG HCO3 ACT 18.1 mmol/L (22.0-26.0); BG METHEMOGLOBIN 0.3 % (0.0-1.5); BG OXYGEN SATURATION 99.5 % (92.0-98.5); BG OXYHEMOGLOBIN 98.9 % (94.0-97.0); BG PCO2 21.4 mmHg (35.0-45.0); BG PH 7.545 (7.350-7.450); BG PO2 326.3 mmHg (75.0-100.0); BG SAMPLE SITE RIGHT BRACHIAL; BG TOTAL HEMOGLOBIN 10.8 g/dL (12.0-18.0); BG VENT MODE MASK - NRB
[2017-03-14] MEDS: ENOXAPARIN 80MG/0.8ML SYR SUBCUT SCH ×2 (15:54→20:44)
[2017-03-14] MEDS: PIPERACILLIN SODIUM/TAZOBACTAM 4.5 G in DEXT 5% WATER 100 ML IV SCH ×2 (15:54→21:28)
[2017-03-14] MEDS: IPRATROPIUM/ALBUTEROL 0.5-3(2.5)MG/3ML NEB HHN PRN (15:55)
[2017-03-14] MEDS: PHENYLEPHRINE 20 MG in DEXT 5% WATER 248 ML IV PRN ×2 (16:52→19:51)
[2017-03-14 19:54] LABS: PLATELET ESTIMATE INCREASED
[2017-03-14] MEDS: PHENYLEPHRINE 40 MG in DEXT 5% WATER 246 ML IV PRN (23:04)
[2017-03-15] VITALS (46 sets, daily range): BP systolic 81–123; BP diastolic 42–80
[2017-03-15] MEDS: VANCOMYCIN 500 MG PREMIX 100 ML IV SCH (05:00)
[2017-03-15 05:24] LABS: HEMATOCRIT. 29.3 % (42.0-52.0); HEMOGLOBIN. 9.3 g/dL (14.0-18.0); MEAN CORPUSCULAR HEMOGLOBIN 27.1 pg (28.0-32.0); MEAN CORPUSCULAR HGB CONC 31.6 g/dL (31.0-37.0); MEAN CORPUSCULAR VOLUME 85.6 fL (80.0-94.0); MEAN PLATELET VOLUME 9.2 fl (7.4-10.4); PLATELET 441 x1000/uL (130-400); RED BLOOD CELL COUNT 3.42 mill/uL (4.7-6.1); RED CELL DISTRIBUTION WIDTH 17.6 % (11.6-14.6); WHITE BLOOD COUNT 16.3 x1000/uL (4.5-11.0)
[2017-03-15 05:32] LABS: DIFFERENTIAL COMMENT 1
[2017-03-15 05:41] LABS: ALANINE AMINOTRANSFERASE 40 IU/L (13-61); ALBUMIN 1.2 g/dL (3.4-5.0); ANION GAP 14; BILIRUBIN DIRECT 0.4 mg/dL (0.0-0.2); CALCIUM 7.8 mg/dL (8.5-10.1); CARBON DIOXIDE 24 mEq/L (21-32); CHLORIDE 109 mEq/L (98-107); INDEX HEMOLYSI 1 (1-3); INDEX ICTERIC 1 (1-4); INDEX LIPEMIC 1 (1-3); MAGNESIUM 2.2 mg/dL (1.8-2.4); PHOSPHORUS 2.8 mg/dL (2.5-4.9); UREA NITROGEN BLOOD 30 mg/dL (7-21); VANCOMYCIN TROUGH 26.3 ug/mL (5.0-10.0); eGFR > 60 mL/min (>60)
[2017-03-15] MEDS: PIPERACILLIN SODIUM/TAZOBACTAM 4.5 G in DEXT 5% WATER 100 ML IV SCH ×3 (05:49→23:45)
[2017-03-15] MEDS ORDERED: POTASSIUM CHLORIDE 20MEQ TABLET SR PO NR (07:15)
[2017-03-15 07:42] LABS: PLATELET ESTIMATE SLIGHTLY INCREASED
[2017-03-15] MEDS: PANTOPRAZOLE SODIUM 40 MG/VIAL IV SCH (08:06)
[2017-03-15] MEDS: ENOXAPARIN 80MG/0.8ML SYR SUBCUT SCH ×2 (08:07→20:53)
[2017-03-15 08:35] LABS: LACTIC ACID 2.5 mmol/L (0.4-2.0)
[2017-03-15] MEDS: DEXT 5%/0.45% NACL 1000ML 1,000 ML IV SCH ×2 (10:21→23:45)
[2017-03-15] MEDS: SODIUM HYPOCHLORITE 0.125% 473ML SOLUTION TOP SCH (14:05)
[2017-03-15] MEDS: ACETAMINOPHEN 650MG/20.3ML UDC GT PRN (14:06)
[2017-03-15] MEDS: PHENYLEPHRINE 40 MG in DEXT 5% WATER 246 ML IV PRN (17:17)
[2017-03-15] MEDS: MORPHINE SULFATE 2 MG/ML CPJ (NOT FOR IM USE) IV PRN (21:13)
[2017-03-16] VITALS (98 sets, daily range): BP systolic 82–118; BP diastolic 40–79
[2017-03-16 04:51] LABS: HEMATOCRIT. 27.8 % (42.0-52.0); HEMOGLOBIN. 8.9 g/dL (14.0-18.0); MEAN CORPUSCULAR HEMOGLOBIN 25.9 pg (28.0-32.0); MEAN CORPUSCULAR HGB CONC 32.2 g/dL (31.0-37.0); MEAN CORPUSCULAR VOLUME 80.3 fL (80.0-94.0); MEAN PLATELET VOLUME 8.7 fl (7.4-10.4); RED BLOOD CELL COUNT 3.46 mill/uL (4.7-6.1); RED CELL DISTRIBUTION WIDTH 17.3 % (11.6-14.6); WHITE BLOOD COUNT 16.6 x1000/uL (4.5-11.0)
[2017-03-16 04:57] LABS: DIFFERENTIAL COMMENT 1
[2017-03-16] MEDS: VANCOMYCIN 750 MG PREMIX 150 ML IV SCH ×2 (05:04→22:57)
[2017-03-16 05:05] LABS: ANION GAP 10; CALCIUM 7.6 mg/dL (8.5-10.1); CARBON DIOXIDE 25 mEq/L (21-32); CHLORIDE 108 mEq/L (98-107); INDEX HEMOLYSI 1 (1-3); INDEX ICTERIC 1 (1-4); INDEX LIPEMIC 1 (1-3); MAGNESIUM 2.2 mg/dL (1.8-2.4); PHOSPHORUS 2.3 mg/dL (2.5-4.9); UREA NITROGEN BLOOD 26 mg/dL (7-21); eGFR > 60 mL/min (>60)
[2017-03-16] MEDS: PIPERACILLIN SODIUM/TAZOBACTAM 4.5 G in DEXT 5% WATER 100 ML IV SCH ×3 (06:13→21:28)
[2017-03-16] MEDS: PHENYLEPHRINE 40 MG in DEXT 5% WATER 246 ML IV PRN ×2 (06:27→21:13)
[2017-03-16 07:10] LABS: PLATELET ESTIMATE INCREAS
[2017-03-16 07:11] LABS: PLATELET 417 x1000/uL (130-400)
[2017-03-16] MEDS: POVIDONE IODINE TOP SCH ×3 (08:36→08:39)
[2017-03-16] MEDS: PANTOPRAZOLE SODIUM 40 MG/VIAL IV SCH (08:36)
[2017-03-16] MEDS: ENOXAPARIN 80MG/0.8ML SYR SUBCUT SCH ×2 (08:36→21:28)
[2017-03-16] MEDS: SODIUM HYPOCHLORITE 0.125% 473ML SOLUTION TOP SCH (08:37)
[2017-03-16] MEDS ORDERED: POTASSIUM PHOS,M-BASIC-D-BASIC 20 MMOL in DEXT 5% WATER 243.3333 ML IV SCH (09:00)
[2017-03-17] VITALS (95 sets, daily range): BP systolic 75–153; BP diastolic 32–104
[2017-03-17 05:13] LABS: HEMATOCRIT. 26.9 % (42.0-52.0); HEMOGLOBIN. 8.5 g/dL (14.0-18.0); MEAN CORPUSCULAR HEMOGLOBIN 25.7 pg (28.0-32.0); MEAN CORPUSCULAR HGB CONC 31.6 g/dL (31.0-37.0); MEAN CORPUSCULAR VOLUME 81.2 fL (80.0-94.0); MEAN PLATELET VOLUME 8.8 fl (7.4-10.4); PLATELET 448 x1000/uL (130-400); RED BLOOD CELL COUNT 3.32 mill/uL (4.7-6.1); RED CELL DISTRIBUTION WIDTH 17.5 % (11.6-14.6)
[2017-03-17 05:42] LABS: ANION GAP 10; CARBON DIOXIDE 26 mEq/L (21-32); CHLORIDE 106 mEq/L (98-107); INDEX HEMOLYSI 1 (1-3); INDEX ICTERIC 1 (1-4); INDEX LIPEMIC 1 (1-3); MAGNESIUM 2.1 mg/dL (1.8-2.4); PHOSPHORUS 2.5 mg/dL (2.5-4.9); UREA NITROGEN BLOOD 22 mg/dL (7-21); eGFR > 60 mL/min (>60)
[2017-03-17] MEDS: PIPERACILLIN SODIUM/TAZOBACTAM 4.5 G in DEXT 5% WATER 100 ML IV SCH ×3 (05:58→22:59)
[2017-03-17 06:00] LABS: CALCIUM 7.4 mg/dL (8.5-10.1)
[2017-03-17 06:10] LABS: DIFFERENTIAL COMMENT 1
[2017-03-17 07:12] LABS: BG BASE EXCESS -1.2 mmol/L (-2.0-2.0); BG CARBOXYHEMOGLOBIN 0.3 % (0.5-1.5); BG DEOXYHEMOGLOBIN 2.6 % (0.0-5.0); BG FRACTION INSPIRED OXYGEN 28; BG HCO3 ACT 20.9 mmol/L (22.0-26.0); BG METHEMOGLOBIN 0.2 % (0.0-1.5); BG OXYGEN SATURATION 97.4 % (92.0-98.5); BG OXYHEMOGLOBIN 96.9 % (94.0-97.0); BG PCO2 26.4 mmHg (35.0-45.0); BG PH 7.517 (7.350-7.450); BG PO2 96.8 mmHg (75.0-100.0); BG SAMPLE SITE RIGHT BRACHIAL; BG TOTAL HEMOGLOBIN 9.4 g/dL (12.0-18.0); BG VENT MODE NASAL CANNULA
[2017-03-17] MEDS ORDERED: POTASSIUM CHLORIDE 20MEQ TABLET SR PO NR (07:30)
[2017-03-17] MEDS: MORPHINE SULFATE 2 MG/ML CPJ (NOT FOR IM USE) IV PRN (07:45)
[2017-03-17] MEDS: PANTOPRAZOLE SODIUM 40 MG/VIAL IV SCH (08:01)
[2017-03-17] MEDS: POVIDONE IODINE TOP SCH (08:01)
[2017-03-17] MEDS: ENOXAPARIN 80MG/0.8ML SYR SUBCUT SCH ×3 (08:01→21:35)
[2017-03-17] MEDS: SODIUM HYPOCHLORITE 0.125% 473ML SOLUTION TOP SCH (08:02)
[2017-03-17] MEDS: IPRATROPIUM/ALBUTEROL 0.5-3(2.5)MG/3ML NEB HHN PRN (08:58)
[2017-03-17 09:44] LABS: ANISOCYTOSIS 1+; PLATELET ESTIMATE INCREASED
[2017-03-17] MEDS: PHENYLEPHRINE 40 MG in DEXT 5% WATER 246 ML IV PRN (14:17)
[2017-03-17] MEDS: VANCOMYCIN 750 MG PREMIX 150 ML IV SCH (17:42)
[2017-03-18] VITALS (99 sets, daily range): BP systolic 82–139; BP diastolic 22–89
[2017-03-18] MEDS: MORPHINE SULFATE 2 MG/ML CPJ (NOT FOR IM USE) IV PRN ×2 (03:15→12:09)
[2017-03-18 05:26] LABS: HEMATOCRIT. 26.3 % (42.0-52.0); HEMOGLOBIN. 8.5 g/dL (14.0-18.0); MEAN CORPUSCULAR HEMOGLOBIN 26.5 pg (28.0-32.0); MEAN CORPUSCULAR HGB CONC 32.4 g/dL (31.0-37.0); MEAN CORPUSCULAR VOLUME 81.9 fL (80.0-94.0); PLATELET 430 x1000/uL (130-400); RED BLOOD CELL COUNT 3.21 mill/uL (4.7-6.1); RED CELL DISTRIBUTION WIDTH 17.5 % (11.6-14.6)
[2017-03-18] MEDS: PIPERACILLIN SODIUM/TAZOBACTAM 4.5 G in DEXT 5% WATER 100 ML IV SCH ×3 (05:31→21:42)
[2017-03-18 05:35] LABS: ANION GAP 12; CARBON DIOXIDE 25 mEq/L (21-32); CHLORIDE 107 mEq/L (98-107); INDEX HEMOLYSI 1 (1-3); INDEX ICTERIC 1 (1-4); INDEX LIPEMIC 1 (1-3); PHOSPHORUS 2.3 mg/dL (2.5-4.9); UREA NITROGEN BLOOD 20 mg/dL (7-21); eGFR > 60 mL/min (>60)
[2017-03-18 05:41] LABS: DIFFERENTIAL COMMENT 1
[2017-03-18 05:43] LABS: CALCIUM 7.4 mg/dL (8.5-10.1); MAGNESIUM 2.1 mg/dL (1.8-2.4)
[2017-03-18] MEDS ORDERED: POTASSIUM PHOS,M-BASIC-D-BASIC 15 MMOL in DEXT 5% WATER 245 ML IV NR (09:00)
[2017-03-18] MEDS: SODIUM HYPOCHLORITE 0.125% 473ML SOLUTION TOP SCH (09:12)
[2017-03-18] MEDS: ENOXAPARIN 80MG/0.8ML SYR SUBCUT SCH ×2 (09:12→21:43)
[2017-03-18] MEDS: POVIDONE IODINE TOP SCH (09:12)
[2017-03-18] MEDS: PANTOPRAZOLE SODIUM 40 MG/VIAL IV SCH (09:12)
[2017-03-18 09:53] LABS: ANISOCYTOSIS 1+; PLATELET ESTIMATE INCREASED
[2017-03-18 09:54] LABS: TOXIC GRANULATION 1+
[2017-03-18] MEDS: MIDODRINE HCL 5MG TABLET PO SCH ×3 (10:29→17:48)
[2017-03-18] MEDS: VANCOMYCIN 750 MG PREMIX 150 ML IV SCH (10:29)
[2017-03-18] MEDS: PHENYLEPHRINE 40 MG in DEXT 5% WATER 246 ML IV PRN (13:10)
[2017-03-18] MEDS ORDERED: EPOETIN ALFA 10000UNITS/ML VIAL SUBCUT SCH (21:00)
[2017-03-19] VITALS (100 sets, daily range): BP systolic 81–148; BP diastolic 43–94
[2017-03-19 04:31] LABS: BASOPHILS % 0.6 % (0.0-2.0); EOSINOPHILS % 1.6 % (0.0-5.0); HEMATOCRIT. 27.1 % (42.0-52.0); HEMOGLOBIN. 8.7 g/dL (14.0-18.0); LYMPHOCYTES % 7.6 % (20.0-50.0); MEAN CORPUSCULAR HEMOGLOBIN 26.6 pg (28.0-32.0); MEAN CORPUSCULAR VOLUME 82.9 fL (80.0-94.0); MEAN PLATELET VOLUME 8.6 fl (7.4-10.4); MONOCYTES % 5.9 % (2.0-8.0); NEUTROPHILS % 84.3 % (40.0-76.0); PLATELET 413 x1000/uL (130-400); RED BLOOD CELL COUNT 3.27 mill/uL (4.7-6.1); RED CELL DISTRIBUTION WIDTH 17.2 % (11.6-14.6); WHITE BLOOD COUNT 9.7 x1000/uL (4.5-11.0)
[2017-03-19] MEDS: VANCOMYCIN 1250MG in DEXTROSE 5% WATER 250ML IV SCH (05:16)
[2017-03-19 05:17] LABS: ANION GAP 10; CALCIUM 7.7 mg/dL (8.5-10.1); CARBON DIOXIDE 26 mEq/L (21-32); CHLORIDE 105 mEq/L (98-107); INDEX HEMOLYSI 1 (1-3); INDEX ICTERIC 1 (1-4); INDEX LIPEMIC 1 (1-3); UREA NITROGEN BLOOD 17 mg/dL (7-21); eGFR > 60 mL/min (>60)
[2017-03-19] MEDS ORDERED: POTASSIUM CHLORIDE 20MEQ TABLET SR PO ONE (05:45)
[2017-03-19] MEDS: PIPERACILLIN SODIUM/TAZOBACTAM 4.5 G in DEXT 5% WATER 100 ML IV SCH ×3 (06:19→21:04)
[2017-03-19] MEDS: ENOXAPARIN 80MG/0.8ML SYR SUBCUT SCH ×2 (08:19→21:04)
[2017-03-19] MEDS: MIDODRINE HCL 5MG TABLET PO SCH ×3 (08:19→17:47)
[2017-03-19] MEDS: PANTOPRAZOLE SODIUM 40 MG/VIAL IV SCH (08:19)
[2017-03-19] MEDS: POVIDONE IODINE TOP SCH (08:20)
[2017-03-19] MEDS: PHENYLEPHRINE 40 MG in DEXT 5% WATER 246 ML IV PRN (08:20)
[2017-03-19] MEDS: SODIUM HYPOCHLORITE 0.125% 473ML SOLUTION TOP SCH (08:21)
[2017-03-19] MEDS: MORPHINE SULFATE 2 MG/ML CPJ (NOT FOR IM USE) IV PRN ×2 (12:17→21:11)
[2017-03-20] VITALS (53 sets, daily range): BP systolic 85–134; BP diastolic 45–87
[2017-03-20] MEDS: PIPERACILLIN SODIUM/TAZOBACTAM 4.5 G in DEXT 5% WATER 100 ML IV SCH ×3 (05:03→22:30)
[2017-03-20 05:31] LABS: BASOPHILS % 0.8 % (0.0-2.0); EOSINOPHILS % 1.7 % (0.0-5.0); HEMATOCRIT. 27.5 % (42.0-52.0); HEMOGLOBIN. 8.7 g/dL (14.0-18.0); LYMPHOCYTES % 7.5 % (20.0-50.0); MEAN CORPUSCULAR HGB CONC 31.6 g/dL (31.0-37.0); MEAN CORPUSCULAR VOLUME 82.3 fL (80.0-94.0); MEAN PLATELET VOLUME 8.8 fl (7.4-10.4); PLATELET 425 x1000/uL (130-400); RED BLOOD CELL COUNT 3.35 mill/uL (4.7-6.1); RED CELL DISTRIBUTION WIDTH 17.1 % (11.6-14.6); WHITE BLOOD COUNT 9.9 x1000/uL (4.5-11.0)
[2017-03-20] MEDS: VANCOMYCIN 1250MG in DEXTROSE 5% WATER 250ML IV SCH (05:51)
[2017-03-20 05:57] LABS: ANION GAP 13; CALCIUM 7.8 mg/dL (8.5-10.1); CARBON DIOXIDE 25 mEq/L (21-32); CHLORIDE 103 mEq/L (98-107); INDEX HEMOLYSI 1 (1-3); INDEX ICTERIC 1 (1-4); INDEX LIPEMIC 1 (1-3); UREA NITROGEN BLOOD 17 mg/dL (7-21)
[2017-03-20 06:02] LABS: PHOSPHORUS 2.1 mg/dL (2.5-4.9); eGFR > 60 mL/min (>60)
[2017-03-20] MEDS ORDERED: POTASSIUM PHOS,M-BASIC-D-BASIC 15 MMOL in DEXT 5% WATER 245 ML IV NR (08:00)
[2017-03-20] MEDS: PANTOPRAZOLE SODIUM 40 MG/VIAL IV SCH (08:08)
[2017-03-20] MEDS: MIDODRINE HCL 5MG TABLET PO SCH ×3 (08:09→16:45)
[2017-03-20] MEDS: ENOXAPARIN 80MG/0.8ML SYR SUBCUT SCH (08:09)
[2017-03-20] MEDS: SODIUM HYPOCHLORITE 0.125% 473ML SOLUTION TOP SCH (08:25)
[2017-03-20] MEDS: POVIDONE IODINE TOP SCH (08:27)
[2017-03-20] MEDS: MORPHINE SULFATE 2 MG/ML CPJ (NOT FOR IM USE) IV PRN (16:46)
[2017-03-20] MEDS: MICONAZOLE NITRATE 2% OINT 71GM TOP SCH (22:31)
[2017-03-21] VITALS (91 sets, daily range): BP systolic 76–134; BP diastolic 39–88
[2017-03-21] MEDS: ENOXAPARIN 80MG/0.8ML SYR SUBCUT SCH ×3 (00:39→21:11)
[2017-03-21] MEDS: CHLORPROMAZINE HCL 25 MG TABLET GT SCH ×3 (00:39→08:09)
[2017-03-21] MEDS: PHENYLEPHRINE 40 MG in DEXT 5% WATER 246 ML IV PRN ×3 (03:00→13:37)
[2017-03-21 05:45] LABS: BASOPHILS % 0.6 % (0.0-2.0); DIFFERENTIAL COMMENT 0; EOSINOPHILS % 1.8 % (0.0-5.0); HEMATOCRIT. 23.6 % (42.0-52.0); HEMOGLOBIN. 7.7 g/dL (14.0-18.0); MEAN CORPUSCULAR HEMOGLOBIN 25.9 pg (28.0-32.0); MEAN CORPUSCULAR HGB CONC 32.5 g/dL (31.0-37.0); MEAN CORPUSCULAR VOLUME 79.6 fL (80.0-94.0); MEAN PLATELET VOLUME 8.9 fl (7.4-10.4); MONOCYTES % 5.3 % (2.0-8.0); NEUTROPHILS % 80.3 % (40.0-76.0); PLATELET 385 x1000/uL (130-400); RED BLOOD CELL COUNT 2.96 mill/uL (4.7-6.1); RED CELL DISTRIBUTION WIDTH 17.3 % (11.6-14.6); WHITE BLOOD COUNT 8.1 x1000/uL (4.5-11.0)
[2017-03-21 06:11] LABS: ANION GAP 13; CALCIUM 7.4 mg/dL (8.5-10.1); CARBON DIOXIDE 25 mEq/L (21-32); CHLORIDE 104 mEq/L (98-107); INDEX HEMOLYSI 1 (1-3); INDEX ICTERIC 1 (1-4); INDEX LIPEMIC 1 (1-3); UREA NITROGEN BLOOD 18 mg/dL (7-21)
[2017-03-21 06:14] LABS: PHOSPHORUS 2.4 mg/dL (2.5-4.9); eGFR > 60 mL/min (>60)
[2017-03-21] MEDS: VANCOMYCIN 1250MG in DEXTROSE 5% WATER 250ML IV SCH (06:50)
[2017-03-21] MEDS: PIPERACILLIN SODIUM/TAZOBACTAM 4.5 G in DEXT 5% WATER 100 ML IV SCH ×3 (06:50→21:12)
[2017-03-21] MEDS ORDERED: POTASSIUM PHOS,M-BASIC-D-BASIC 15 MMOL in DEXT 5% WATER 245 ML IV NR (09:00)
[2017-03-21 09:07] LABS: BG BASE EXCESS 1.5 mmol/L (-2.0-2.0); BG CARBOXYHEMOGLOBIN 0.3 % (0.5-1.5); BG FRACTION INSPIRED OXYGEN 28; BG HCO3 ACT 23.7 mmol/L (22.0-26.0); BG METHEMOGLOBIN 0.2 % (0.0-1.5); BG OXYHEMOGLOBIN 97.5 % (94.0-97.0); BG PCO2 28.5 mmHg (35.0-45.0); BG PH 7.538 (7.350-7.450); BG PO2 104.9 mmHg (75.0-100.0); BG SAMPLE SITE RIGHT RADIAL; BG TOTAL HEMOGLOBIN 9.1 g/dL (12.0-18.0); BG VENT MODE NASAL CANNULA
[2017-03-21] MEDS: PANTOPRAZOLE SODIUM 40 MG/VIAL IV SCH (09:07)
[2017-03-21] MEDS: MICONAZOLE NITRATE 2% OINT 71GM TOP SCH ×2 (09:07→21:12)
[2017-03-21] MEDS: MIDODRINE HCL 5MG TABLET PO SCH ×3 (09:07→16:26)
[2017-03-21] MEDS: POVIDONE IODINE TOP SCH (09:09)
[2017-03-21] MEDS: SODIUM HYPOCHLORITE 0.125% 473ML SOLUTION TOP SCH (09:09)
[2017-03-21] MEDS: MORPHINE SULFATE 2 MG/ML CPJ (NOT FOR IM USE) IV PRN (09:32)
[2017-03-21] MEDS: PHENYLEPHRINE 80 MG in DEXT 5% WATER 500 ML IV PRN (17:39)
[2017-03-21] MEDS: IPRATROPIUM/ALBUTEROL 0.5-3(2.5)MG/3ML NEB HHN PRN (21:05)
[2017-03-22] VITALS (94 sets, daily range): BP systolic 66–158; BP diastolic 32–108
[2017-03-22] MEDS: PHENYLEPHRINE 80 MG in DEXT 5% WATER 500 ML IV PRN ×3 (03:29→21:26)
[2017-03-22] MEDS: VANCOMYCIN 1250MG in DEXTROSE 5% WATER 250ML IV SCH (05:09)
[2017-03-22 05:13] LABS: ANION GAP 15; CALCIUM 8.1 mg/dL (8.5-10.1); CARBON DIOXIDE 23 mEq/L (21-32); CHLORIDE 105 mEq/L (98-107); INDEX HEMOLYSI 1 (1-3); INDEX ICTERIC 1 (1-4); INDEX LIPEMIC 1 (1-3); MAGNESIUM 2.1 mg/dL (1.8-2.4); PHOSPHORUS 3.2 mg/dL (2.5-4.9); UREA NITROGEN BLOOD 17 mg/dL (7-21); VANCOMYCIN TROUGH 21.9 ug/mL (5.0-10.0); eGFR > 60 mL/min (>60)
[2017-03-22] MEDS: PIPERACILLIN SODIUM/TAZOBACTAM 4.5 G in DEXT 5% WATER 100 ML IV SCH ×3 (06:34→21:19)
[2017-03-22 08:30] LABS: HEMOGLOBIN. 8.4 g/dL (14.0-18.0); MEAN CORPUSCULAR HEMOGLOBIN 25.6 pg (28.0-32.0); PLATELET 501 x1000/uL (130-400); RED BLOOD CELL COUNT 3.29 mill/uL (4.7-6.1); RED CELL DISTRIBUTION WIDTH 17.8 % (11.6-14.6); WHITE BLOOD COUNT 14.6 x1000/uL (4.5-11.0)
[2017-03-22 08:34] LABS: DIFFERENTIAL COMMENT 1
[2017-03-22 08:35] LABS: HEMATOCRIT. 26.3 % (42.0-52.0)
[2017-03-22] MEDS: MIDODRINE HCL 5MG TABLET PO SCH ×3 (09:17→17:37)
[2017-03-22] MEDS: PANTOPRAZOLE SODIUM 40 MG/VIAL IV SCH (09:17)
[2017-03-22] MEDS: MICONAZOLE NITRATE 2% OINT 71GM TOP SCH ×2 (09:18→20:03)
[2017-03-22] MEDS: POVIDONE IODINE TOP SCH (09:18)
[2017-03-22] MEDS: ENOXAPARIN 80MG/0.8ML SYR SUBCUT SCH ×2 (09:18→20:03)
[2017-03-22] MEDS: SODIUM HYPOCHLORITE 0.125% 473ML SOLUTION TOP SCH (09:18)
[2017-03-22 09:37] LABS: ANISOCYTOSIS 1+; PLATELET ESTIMATE INCREASED
[2017-03-22] MEDS ORDERED: METOPROLOL TARTRATE 5MG/5ML VIAL IV PRN ×2 (11:00→20:00)
[2017-03-22] MEDS: ACETAMINOPHEN 650MG/20.3ML UDC GT PRN (13:12)
[2017-03-22] MEDS: SODIUM CHLORIDE 0.9% 500 ML IV NR ×5 (17:38→21:19)
[2017-03-23] VITALS (96 sets, daily range): BP systolic 84–139; BP diastolic 39–84
[2017-03-23] MEDS: MORPHINE SULFATE 2 MG/ML CPJ (NOT FOR IM USE) IV PRN (00:17)
[2017-03-23 05:12] LABS: HEMOGLOBIN. 8.8 g/dL (14.0-18.0); MEAN CORPUSCULAR HGB CONC 31.3 g/dL (31.0-37.0); MEAN CORPUSCULAR VOLUME 79.8 fL (80.0-94.0); MEAN PLATELET VOLUME 8.1 fl (7.4-10.4); PLATELET 504 x1000/uL (130-400); RED BLOOD CELL COUNT 3.51 mill/uL (4.7-6.1); RED CELL DISTRIBUTION WIDTH 17.9 % (11.6-14.6); WHITE BLOOD COUNT 16.1 x1000/uL (4.5-11.0)
[2017-03-23 05:13] LABS: DIFFERENTIAL COMMENT 1
[2017-03-23] MEDS: PIPERACILLIN SODIUM/TAZOBACTAM 4.5 G in DEXT 5% WATER 100 ML IV SCH ×3 (05:24→21:07)
[2017-03-23] MEDS: VANCOMYCIN 1250MG in DEXTROSE 5% WATER 250ML IV SCH (05:24)
[2017-03-23 05:38] LABS: ANION GAP 13; CARBON DIOXIDE 24 mEq/L (21-32); CHLORIDE 109 mEq/L (98-107); INDEX HEMOLYSI 1 (1-3); INDEX ICTERIC 1 (1-4); INDEX LIPEMIC 1 (1-3); MAGNESIUM 2.3 mg/dL (1.8-2.4); PHOSPHORUS 2.7 mg/dL (2.5-4.9); UREA NITROGEN BLOOD 19 mg/dL (7-21); eGFR > 60 mL/min (>60)
[2017-03-23 08:09] LABS: ANISOCYTOSIS 1+; HYPOCHROMASIA 1+
[2017-03-23 08:10] LABS: PLATELET ESTIMATE SLIGHTLY INCREASED
[2017-03-23] MEDS: MIDODRINE HCL 5MG TABLET PO SCH ×3 (09:44→16:50)
[2017-03-23] MEDS: PANTOPRAZOLE SODIUM 40 MG/VIAL IV SCH (09:44)
[2017-03-23] MEDS: POVIDONE IODINE TOP SCH (09:45)
[2017-03-23] MEDS: MICONAZOLE NITRATE 2% OINT 71GM TOP SCH ×2 (09:45→21:09)
[2017-03-23] MEDS: ENOXAPARIN 80MG/0.8ML SYR SUBCUT SCH ×2 (09:45→21:08)
[2017-03-23] MEDS: SODIUM HYPOCHLORITE 0.125% 473ML SOLUTION TOP SCH (09:45)
[2017-03-23] MEDS ORDERED: METOPROLOL TARTRATE 5MG/5ML VIAL IV PRN (11:00)
[2017-03-23] MEDS: IPRATROPIUM/ALBUTEROL 0.5-3(2.5)MG/3ML NEB HHN PRN (12:06)
[2017-03-23] MEDS ORDERED: SODIUM CHLORIDE 0.9% 500 ML IV ONE (15:30)
[2017-03-23] MEDS: PHENYLEPHRINE 80 MG in DEXT 5% WATER 500 ML IV PRN (18:11)
[2017-03-24] VITALS (44 sets, daily range): BP systolic 89–155; BP diastolic 54–96
[2017-03-24] MEDS: PIPERACILLIN SODIUM/TAZOBACTAM 4.5 G in DEXT 5% WATER 100 ML IV SCH ×3 (05:33→22:37)
[2017-03-24 05:53] LABS: HEMATOCRIT. 27.2 % (42.0-52.0); HEMOGLOBIN. 8.6 g/dL (14.0-18.0); MEAN CORPUSCULAR HEMOGLOBIN 25.5 pg (28.0-32.0); MEAN CORPUSCULAR HGB CONC 31.6 g/dL (31.0-37.0); MEAN CORPUSCULAR VOLUME 80.8 fL (80.0-94.0); MEAN PLATELET VOLUME 8.3 fl (7.4-10.4); PLATELET 465 x1000/uL (130-400); RED BLOOD CELL COUNT 3.37 mill/uL (4.7-6.1); RED CELL DISTRIBUTION WIDTH 18.4 % (11.6-14.6); WHITE BLOOD COUNT 13.8 x1000/uL (4.5-11.0)
[2017-03-24 05:55] LABS: DIFFERENTIAL COMMENT 1
[2017-03-24 06:14] LABS: INDEX HEMOLYSI 1 (1-3); INDEX ICTERIC 1 (1-4); INDEX LIPEMIC 1 (1-3)
[2017-03-24] MEDS: VANCOMYCIN 1250MG in DEXTROSE 5% WATER 250ML IV SCH (06:40)
[2017-03-24 07:53] LABS: CHLORIDE 109 mEq/L (98-107); MAGNESIUM 2.3 mg/dL (1.8-2.4); PHOSPHORUS 3.6 mg/dL (2.5-4.9); UREA NITROGEN BLOOD 23 mg/dL (7-21); eGFR > 60 mL/min (>60)
[2017-03-24 08:00] LABS: ANION GAP 19; CARBON DIOXIDE 21 mEq/L (21-32)
[2017-03-24 08:04] LABS: ANISOCYTOSIS 1+; PLATELET ESTIMATE INCREASED
[2017-03-24] MEDS: MIDODRINE HCL 5MG TABLET PO SCH ×3 (08:24→17:34)
[2017-03-24] MEDS: PANTOPRAZOLE SODIUM 40 MG/VIAL IV SCH (08:24)
[2017-03-24] MEDS: ENOXAPARIN 80MG/0.8ML SYR SUBCUT SCH ×2 (08:24→21:18)
[2017-03-24] MEDS: MICONAZOLE NITRATE 2% OINT 71GM TOP SCH ×2 (08:25→22:36)
[2017-03-24] MEDS: SODIUM HYPOCHLORITE 0.125% 473ML SOLUTION TOP SCH (08:29)
[2017-03-24] MEDS: POVIDONE IODINE TOP SCH (08:39)
[2017-03-24] MEDS ORDERED: POTASSIUM CHLORIDE 20MEQ/PACKET NG SCH (09:45)
[2017-03-24] MEDS ORDERED: POTASSIUM CHLORIDE 20MEQ TABLET SR PO ONE (09:45)
[2017-03-25] VITALS (16 sets, daily range): BP systolic 93–143; BP diastolic 60–88
[2017-03-25] MEDS: PIPERACILLIN SODIUM/TAZOBACTAM 4.5 G in DEXT 5% WATER 100 ML IV SCH ×3 (05:48→21:24)
[2017-03-25 06:02] LABS: BASOPHILS % 0.5 % (0.0-2.0); EOSINOPHILS % 2.6 % (0.0-5.0); HEMOGLOBIN. 7.9 g/dL (14.0-18.0); LYMPHOCYTES % 8.1 % (20.0-50.0); MEAN CORPUSCULAR HEMOGLOBIN 25.7 pg (28.0-32.0); MEAN CORPUSCULAR HGB CONC 31.5 g/dL (31.0-37.0); MEAN CORPUSCULAR VOLUME 81.5 fL (80.0-94.0); MEAN PLATELET VOLUME 8.3 fl (7.4-10.4); MONOCYTES % 4.4 % (2.0-8.0); NEUTROPHILS % 84.4 % (40.0-76.0); PLATELET 418 x1000/uL (130-400); RED BLOOD CELL COUNT 3.07 mill/uL (4.7-6.1); RED CELL DISTRIBUTION WIDTH 18.2 % (11.6-14.6); WHITE BLOOD COUNT 9.5 x1000/uL (4.5-11.0)
[2017-03-25 07:23] LABS: ANION GAP 13; CALCIUM 7.8 mg/dL (8.5-10.1); CARBON DIOXIDE 22 mEq/L (21-32); CHLORIDE 114 mEq/L (98-107); INDEX HEMOLYSI 1 (1-3); INDEX ICTERIC 1 (1-4); INDEX LIPEMIC 1 (1-3); UREA NITROGEN BLOOD 21 mg/dL (7-21); eGFR > 60 mL/min (>60)
[2017-03-25] MEDS: VANCOMYCIN 1250MG in DEXTROSE 5% WATER 250ML IV SCH (07:31)
[2017-03-25] MEDS: MIDODRINE HCL 5MG TABLET PO SCH ×3 (08:47→17:56)
[2017-03-25] MEDS: PANTOPRAZOLE SODIUM 40 MG/VIAL IV SCH (08:47)
[2017-03-25] MEDS: MICONAZOLE NITRATE 2% OINT 71GM TOP SCH ×2 (08:48→21:24)
[2017-03-25] MEDS: SODIUM HYPOCHLORITE 0.125% 473ML SOLUTION TOP SCH (08:49)
[2017-03-25] MEDS: POVIDONE IODINE TOP SCH (08:53)
[2017-03-26] VITALS (12 sets, daily range): BP systolic 110–140; BP diastolic 60–83
[2017-03-26] MEDS: PIPERACILLIN SODIUM/TAZOBACTAM 4.5 G in DEXT 5% WATER 100 ML IV SCH ×3 (05:43→21:02)
[2017-03-26] MEDS: VANCOMYCIN 1250MG in DEXTROSE 5% WATER 250ML IV SCH (06:52)
[2017-03-26] MEDS: PANTOPRAZOLE SODIUM 40 MG/VIAL IV SCH (08:45)
[2017-03-26] MEDS: POVIDONE IODINE TOP SCH (08:46)
[2017-03-26] MEDS: MICONAZOLE NITRATE 2% OINT 71GM TOP SCH ×2 (08:46→21:01)
[2017-03-26] MEDS: SODIUM HYPOCHLORITE 0.125% 473ML SOLUTION TOP SCH (08:46)
[2017-03-26] MEDS: MIDODRINE HCL 5MG TABLET PO SCH ×3 (08:46→17:47)
[2017-03-26] MEDS ORDERED: ENOXAPARIN 80MG/0.8ML SYR SUBCUT SCH (12:38)
[2017-03-26 16:29] LABS: BASOPHILS % 1.1 % (0.0-2.0); DIFFERENTIAL COMMENT 0; EOSINOPHILS % 1.6 % (0.0-5.0); HEMATOCRIT. 28.2 % (42.0-52.0); HEMOGLOBIN. 9.2 g/dL (14.0-18.0); LYMPHOCYTES % 8.6 % (20.0-50.0); MEAN CORPUSCULAR HEMOGLOBIN 25.9 pg (28.0-32.0); MEAN CORPUSCULAR HGB CONC 32.4 g/dL (31.0-37.0); MEAN CORPUSCULAR VOLUME 79.8 fL (80.0-94.0); MEAN PLATELET VOLUME 7.5 fl (7.4-10.4); MONOCYTES % 4.5 % (2.0-8.0); NEUTROPHILS % 84.2 % (40.0-76.0); PLATELET 428 x1000/uL (130-400); RED BLOOD CELL COUNT 3.54 mill/uL (4.7-6.1); RED CELL DISTRIBUTION WIDTH 18.2 % (11.6-14.6)
[2017-03-26 16:47] LABS: ANION GAP 13; CARBON DIOXIDE 23 mEq/L (21-32); CHLORIDE 112 mEq/L (98-107); INDEX HEMOLYSI 1 (1-3); INDEX ICTERIC 1 (1-4); INDEX LIPEMIC 1 (1-3); UREA NITROGEN BLOOD 20 mg/dL (7-21); eGFR > 60 mL/min (>60)
[2017-03-26] MEDS: POTASSIUM CHLORIDE 20MEQ TABLET SR PO SCH (17:46)
[2017-03-27] VITALS (10 sets, daily range): BP systolic 120–141; BP diastolic 49–79
[2017-03-27] MEDS: VANCOMYCIN 1250MG in DEXTROSE 5% WATER 250ML IV SCH (04:56)
[2017-03-27] MEDS: PIPERACILLIN SODIUM/TAZOBACTAM 4.5 G in DEXT 5% WATER 100 ML IV SCH ×2 (05:00→14:24)
[2017-03-27 06:56] LABS: BASOPHILS % 0.6 % (0.0-2.0); EOSINOPHILS % 1.7 % (0.0-5.0); HEMATOCRIT. 31.4 % (42.0-52.0); HEMOGLOBIN. 9.9 g/dL (14.0-18.0); LYMPHOCYTES % 7.6 % (20.0-50.0); MEAN CORPUSCULAR HEMOGLOBIN 25.8 pg (28.0-32.0); MEAN CORPUSCULAR HGB CONC 31.4 g/dL (31.0-37.0); MEAN CORPUSCULAR VOLUME 82.1 fL (80.0-94.0); MEAN PLATELET VOLUME 7.9 fl (7.4-10.4); NEUTROPHILS % 85.1 % (40.0-76.0); PLATELET 428 x1000/uL (130-400); RED BLOOD CELL COUNT 3.83 mill/uL (4.7-6.1); RED CELL DISTRIBUTION WIDTH 18.4 % (11.6-14.6); WHITE BLOOD COUNT 11.9 x1000/uL (4.5-11.0)
[2017-03-27 07:24] LABS: ANION GAP 11; CALCIUM 8.2 mg/dL (8.5-10.1); CARBON DIOXIDE 24 mEq/L (21-32); CHLORIDE 111 mEq/L (98-107); INDEX HEMOLYSI 1 (1-3); INDEX ICTERIC 1 (1-4); INDEX LIPEMIC 1 (1-3); UREA NITROGEN BLOOD 20 mg/dL (7-21); eGFR > 60 mL/min (>60)
[2017-03-27] MEDS ORDERED: POTASSIUM CHLORIDE 20MEQ TABLET SR PO NR (08:30)
[2017-03-27] MEDS: POVIDONE IODINE TOP SCH (09:00)
[2017-03-27] MEDS: POTASSIUM CHLORIDE 20MEQ TABLET SR PO SCH (09:04)
[2017-03-27] MEDS: PANTOPRAZOLE SODIUM 40 MG/VIAL IV SCH (09:04)
[2017-03-27] MEDS: MIDODRINE HCL 5MG TABLET PO SCH ×2 (09:04→12:28)
[2017-03-27] MEDS: MICONAZOLE NITRATE 2% OINT 71GM TOP SCH (09:04)
[2017-03-27] MEDS: SODIUM HYPOCHLORITE 0.125% 473ML SOLUTION TOP SCH (09:05)
== END 2017-03-27 17:23 | DRG 559 ==
LOC: 6EST 10:30 → MICUSO 03-14 13:30 → 5EST 03-24 19:14
PROVIDERS: ADMIT Hospitalist; ATTEND Hospitalist
PROC: 30233N1 Transfusion of Nonautologous Red Blood Cells into Peripheral Vein, Percutaneous Approach (ICD-10-PCS; principal; 2017-03-25)
DX: T84.51XA Infection and inflammatory reaction due to internal right hip prosthesis, initial encounter (principal); A41.2 Sepsis due to unspecified staphylococcus; J96.01 Acute respiratory failure with hypoxia; A41.59 Other Gram-negative sepsis; R65.21 Severe sepsis with septic shock; J69.0 Pneumonitis due to inhalation of food and vomit; J15.1 Pneumonia due to Pseudomonas; J15.0 Pneumonia due to Klebsiella pneumoniae; G93.41 Metabolic encephalopathy; A41.81 Sepsis due to Enterococcus; E46 Unspecified protein-calorie malnutrition; I82.403 Acute embolism and thrombosis of unspecified deep veins of lower extremity, bilateral; N17.9 Acute kidney failure, unspecified; J44.1 Chronic obstructive pulmonary disease with (acute) exacerbation; Z68.1 Body mass index [BMI] 19.9 or less, adult; Z66 Do not resuscitate; B95.62 Methicillin resistant Staphylococcus aureus infection as the cause of diseases classified elsewhere; D64.9 Anemia, unspecified; M40.209 Unspecified kyphosis, site unspecified; R13.10 Dysphagia, unspecified; Z96.649 Presence of unspecified artificial hip joint; F03.90 Unspecified dementia, unspecified severity, without behavioral disturbance, psychotic disturbance, mood disturbance, and anxiety; I25.10 Atherosclerotic heart disease of native coronary artery without angina pectoris; K74.60 Unspecified cirrhosis of liver; Y83.1 Surgical operation with implant of artificial internal device as the cause of abnormal reaction of the patient, or of later complication, without mention of misadventure at the time of the procedure; N28.89 Other specified disorders of kidney and ureter; K80.20 Calculus of gallbladder without cholecystitis without obstruction; N32.89 Other specified disorders of bladder; Z86.73 Personal history of transient ischemic attack (TIA), and cerebral infarction without residual deficits; Z93.1 Gastrostomy status; Z86.718 Personal history of other venous thrombosis and embolism
CPT/HCPCS: 36415; 36600; 71010; 76700; 76857; 78582; 80048; 80076; 80202; 80305; 81001; 82270; 82375; 82805; 82962; 83605; 83735; 84100; 85025; 85651; 86140; 86850; 86900; 86920; 87040; 87070; 87077; 87186; 87205; 93005; 93970; 94640; A6261; A9558; C9113; J1170; J1650; J2270; J2370; J2543; J3370; J3490; J7030; J7040; J7050; J7060; J7620; P9016; Q0161; A4315